=== PATIENT | female | born 1980 | race Caucasian/White ===

== ENCOUNTER 2016-11-23 10:52 | Emergency (ER) | payer BC ==
[~2016-11-23] VITALS: Ht 162.6 cm; Wt 161.8 kg
[2016-11-23 12:26] VITALS: BP 132/74
== END 2016-11-23 12:27 | disposition home or self-care (01) ==
LOC: EME 10:52
DX: S05.01XA Injury of conjunctiva and corneal abrasion without foreign body, right eye, initial encounter (principal); X58.XXXA Exposure to other specified factors, initial encounter; Z87.891 Personal history of nicotine dependence
CPT/HCPCS: 99281; 99283